=== PATIENT | female | born 1985 | race Caucasian/White ===

== ENCOUNTER 2024-07-04 08:34 | Emergency (ER) | payer OTHER ==
[~2024-07-04] VITALS: Ht 157.5 cm; Wt 92.7 kg
[~2024-07-04 08:34] MED LIST: AMOXICILLIN500 MG PO; CLINDAMYCIN HC300 MG PO; DIFLUCAN150 MG PO; IBUPROFEN200 M1 PO; KEFLEX500 MG PO; PROBIOTIC1 EAC1 PO; PROZAC10 MG PO; TYLENOL325 MG PO; VITAMIN B-121000 MCG PO; ZOFRAN ODT8 MG PO; ZOFRAN8 MG PO
[2024-07-04 09:22] LABS: BILIRUBIN, URINE NEGATIVE (negative); BLOOD/HGB, URINE NEGATIVE (Negative); KETONE, URINE NEGATIVE (Negative); LEUK ESTERASE, URINE TRACE (negative); NITRITE, URINE NEGATIVE (negative)
[2024-07-04 09:27] LABS: EPITHELIAL CELLS, URINE SQUAMOUS 3+ /lpf (0-1+)
[2024-07-04 09:28] LABS: BACTERIA, URINE 1+ /hpf (negative); CASTS, URINE NONE SEEN \\lpf; COLLECTION TYPE, URINE CLEAN CATCH; CRYSTALS, URINE NONE SEEN (0-1+); RED BLOOD CELLS, URINE 0-1 /hpf (0-5); REFLEX CULTURE, URINE No (No)
[2024-07-04 09:59] LABS: BASOPHILS 0.9 % (0-2); HEMATOCRIT 40.2 % (35.0-50.0); LYMPHOCYTES 32.2 % (24-44); MCH 30.8 (27-36); MCHC 34.9 g/dl (30-36); MCV 88.4 fl (81-99); MONOCYTES 5.7 % (0-12); NEUTROPHILS 60.2 % (39-80); PLATELET COUNT 277 K/uL (140-440); RBC 4.55 M/ul (4.3-5.7); RDW 13.1 (10.5-15.0)
[2024-07-04 10:15] LABS: ALBUMIN 3.3 g/dL (3.4-5.0); ALBUMIN/GLOBULIN RATIO 0.79 (1.1-2.4); ANION GAP 12.2 (7-21); BILIRUBIN, TOTAL 0.4 mg/dL (0.2-1.0); BUN/CREATININE RATIO 15.73 (6.0-28.6); CALCIUM 8.6 mg/dL (8.5-10.1); CREATININE, SERUM 0.89 mg/dL (0.55-1.02); POTASSIUM 4.2 mmol/L (3.5-5.1); PROTEIN, TOTAL 7.5 g/dL (6.4-8.2)
[2024-07-04 11:26] VITALS: BP 127/86
== END 2024-07-04 11:24 | disposition home or self-care (01) ==
LOC: ED 08:34
PROVIDERS: Emergency Medicine
DX: R10.2 Pelvic and perineal pain (principal); Z91.030 Bee allergy status; Z88.1 Allergy status to other antibiotic agents; Z88.2 Allergy status to sulfonamides; Z88.5 Allergy status to narcotic agent; Z88.7 Allergy status to serum and vaccine
CPT/HCPCS: 36415; 74177; 80053; 81001; 85025; 99284-25; Q9967

== ENCOUNTER 2024-07-21 12:46 | Emergency (ER) | payer OTHER ==
[~2024-07-21] VITALS: Ht 157.5 cm; Wt 93.7 kg
--- OUTSIDE RECORDS SUMMARY | 2024-07-21 12:52 | XMS ---
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 E.DLenora VISIT COUNT (12 MO.) [address] [place] [address] Gema Romano (Linda Mckeon[address] TOTAL 6 NOTE: Visits indicate total known visits. ED/UCC VISIT TRACKING (12 MO.) 07/21/2024 12:[address] [facility] [place] TYPE: Emergency COMPLAINT: - BLOOD IN URINE 07/04/2024 08:[address] [facility] [place] TYPE: Emergency COMPLAINT: - URINE PROBLEM DIAGNOSES: - Allergy status to narcotic agent - Allergy status to other antibiotic agents - Allergy status to serum and vaccine - Allergy status to sulfonamides - Bee allergy status - Pelvic and perineal pain 04/26/2024 05:59 [facility] [place] (Linda Mckeon) TYPE: Emergency DIAGNOSES: - Acute pharyngitis, unspecified - Cough, unspecified - Cough - Fever (9 Weeks To 74 Years) - sore throat 12/06/2023 04:23 [facility] [place] (Linda Mckeon) TYPE: Emergency DIAGNOSES: - Acute upper respiratory infection, unspecified - Cough - sob, cough 12/03/2023 05:36 [facility] [place] (Linda Mckeon) TYPE: Emergency DIAGNOSES: - Acute pharyngitis, unspecified - Sore Throat - sore throat lt ear pain 08/06/2023 19:42 [facility] [place] (Linda Mckeon) TYPE: Emergency DIAGNOSES: - Anaphylactic shock, unspecified, initial encounter - Bee Sting INPATIENT VISIT TRACKING (12 MO.) No inpatient visits to display in this time frame [email or web address]
[2024-07-21 13:14] LABS: BILIRUBIN, URINE NEGATIVE (negative); BLOOD/HGB, URINE NEGATIVE (Negative); KETONE, URINE NEGATIVE (Negative); LEUK ESTERASE, URINE TRACE (negative); NITRITE, URINE NEGATIVE (negative)
[2024-07-21 13:21] LABS: EPITHELIAL CELLS, URINE SQUAMOUS 2+ /lpf (0-1+); RED BLOOD CELLS, URINE 0-1 /hpf (0-5); REFLEX CULTURE, URINE No (No); WHITE BLOOD CELLS, URINE 0-1 /HPF (0-5)
[2024-07-21 13:24] LABS: BASOPHILS 0.8 % (0-2); EOSINOPHILS 0.7 % (0-6); HEMATOCRIT 40.3 % (35.0-50.0); LYMPHOCYTES 30.3 % (24-44); MCH 30.5 (27-36); MCHC 34.7 g/dl (30-36); MCV 87.9 fl (81-99); MONOCYTES 5.4 % (0-12); NEUTROPHILS 62.8 % (39-80); PLATELET COUNT 285 K/uL (140-440); RBC 4.59 M/ul (4.3-5.7); RDW 12.8 (10.5-15.0)
[2024-07-21 13:58] LABS: ALBUMIN 3.3 g/dL (3.4-5.0); ALBUMIN/GLOBULIN RATIO 0.79 (1.1-2.4); ANION GAP 10.6 (7-21); BILIRUBIN, TOTAL 0.4 mg/dL (0.2-1.0); BUN/CREATININE RATIO 13.92 (6.0-28.6); CALCIUM 8.9 mg/dL (8.5-10.1); CREATININE, SERUM 0.79 mg/dL (0.55-1.02); POTASSIUM 3.6 mmol/L (3.5-5.1); PROTEIN, TOTAL 7.5 g/dL (6.4-8.2)
[2024-07-21 14:08] VITALS: BP 142/93
== END 2024-07-21 14:08 | disposition home or self-care (01) ==
LOC: ED 12:46
PROVIDERS: Emergency Medicine
DX: N81.10 Cystocele, unspecified (principal); Z79.899 Other long term (current) drug therapy; Z88.5 Allergy status to narcotic agent; Z88.2 Allergy status to sulfonamides; Z88.7 Allergy status to serum and vaccine
CPT/HCPCS: 36415; 80053; 81001; 83690; 85025; 99284

== ENCOUNTER 2024-10-11 11:04 | Emergency (ER) | payer OTHER ==
[~2024-10-11] VITALS: Ht 157.5 cm; Wt 92.9 kg
[2024-10-11 11:35] LABS: BLOOD/HGB, URINE SMALL (Negative); KETONE, URINE NEGATIVE (Negative); LEUK ESTERASE, URINE SMALL (negative); NITRITE, URINE NEGATIVE (negative)
[2024-10-11 11:40] LABS: BACTERIA, URINE 1+ /hpf (negative); CASTS, URINE NONE SEEN \\lpf; CRYSTALS, URINE NONE SEEN (0-1+); EPITHELIAL CELLS, URINE SQUAMOUS 4+ /lpf (0-1+)
[2024-10-11 11:41] LABS: REFLEX CULTURE, URINE No (No)
[2024-10-11 12:09] VITALS: BP 142/104
== END 2024-10-11 12:10 | disposition home or self-care (01) ==
LOC: ED 11:04
PROVIDERS: Emergency Medicine
DX: R39.198 Other difficulties with micturition (principal); Z98.890 Other specified postprocedural states; Z91.030 Bee allergy status; Z88.1 Allergy status to other antibiotic agents; Z88.5 Allergy status to narcotic agent; Z88.2 Allergy status to sulfonamides; Z88.7 Allergy status to serum and vaccine; Z79.899 Other long term (current) drug therapy
CPT/HCPCS: 51798; 81001; 99283

== ENCOUNTER 2024-11-14 17:26 | Emergency (ER) | payer OTHER ==
[~2024-11-14] VITALS: Ht 157.5 cm; Wt 90.0 kg
[2024-11-14 19:04] VITALS: BP 140/113
== END 2024-11-14 19:05 | disposition home or self-care (01) ==
LOC: ED 17:26
DX: S90.32XA Contusion of left foot, initial encounter (principal); X50.3XXA Overexertion from repetitive movements, initial encounter; Z88.5 Allergy status to narcotic agent; Z91.030 Bee allergy status; Z88.2 Allergy status to sulfonamides; Z88.7 Allergy status to serum and vaccine; Z88.8 Allergy status to other drugs, medicaments and biological substances; Z88.1 Allergy status to other antibiotic agents; Z79.899 Other long term (current) drug therapy
CPT/HCPCS: 73630; 99283